=== PATIENT | male | born 1960 | race Hispanic/Latino ===

== ENCOUNTER 2016-06-21 10:40 | Outpatient (CLI) | payer OTHER ==
--- NOTE | 2016-06-21 12:37 | XRay Report ---
LEFT SHOULDER, THREE VIEWS HISTORY: Pain. FINDINGS: Mild osteoarthritic changes are identified. There is no evidence for fracture, dislocation or ligamentous injury. The soft tissues are unremarkable. IMPRESSION: Mild osteoarthritic changes.
--- NOTE | 2016-06-21 12:46 | XRay Report ---
LUMBAR SPINE RADIOGRAPHS: INDICATION: Lumbar pain. COMPARISON: None similar. FINDINGS: AP and lateral lumbar spine radiographs demonstrate moderate degenerative spurring throughout. Mild, depression of L2 superior endplate noted with approximately 1/3rd loss of height. L1 compression deformity also possible. Demineralized bones. Lumbar disc narrowing at few levels may also be present as also lower lumbar facet arthropathy. Extensive aortoiliac atherosclerotic calcifications. Clear visualized lung bases. Nonobstructive bowel gas pattern. Intact SI joints. CONCLUSION: Multilevel lumbar degenerative changes noted with mild L2 and possibly L1 compression deformities, exact age indeterminate, as described. Direct comparison with prior relevant imaging would also be helpful, if available. Please also correlate clinically or further with MRI for more accurate age determination, if warranted. Thank you for the opportunity to participate in this patient's care.
== END 2016-06-21 10:41 | disposition home or self-care (01) ==
LOC: XRAY 10:40
PROVIDERS: ATTEND Internal Medicine
DX: I63.9 Cerebral infarction, unspecified (principal); G40.909 Epilepsy, unspecified, not intractable, without status epilepticus; M47.896 Other spondylosis, lumbar region; R41.3 Other amnesia; M12.88 Other specific arthropathies, not elsewhere classified, other specified site; M25.512 Pain in left shoulder; M54.5 Low back pain
CPT/HCPCS: 72100